=== PATIENT | female | born 1975 | race Caucasian/White ===

== ENCOUNTER 2023-08-04 13:31 | Emergency (ER) | payer OTHER ==
[~2023-08-04] VITALS: Ht 154.9 cm; Wt 77.0 kg
[2023-08-04 13:34] VITALS: O2SAT 97
[2023-08-04] MEDS ORDERED: HYDROCODONE/ACETAMINOPHEN 5/325MG TABLET PO ONE (14:30)
[2023-08-04] MEDS ORDERED: LIDOCAINE HCL/PF 1% 10 MG/ML 5ML VIAL INFIL ONE (14:30)
[2023-08-04] MEDS ORDERED: BACITRACIN ZINC OINT UDPKT TOP ONE (14:30)
[2023-08-04] MEDS ORDERED: AMOXICILLIN/POTASSIUM CLAVULANATE 875/125MG TAB PO ONE (14:30)
[2023-08-04] MEDS ORDERED: AMOX1TAB16 MT (17:25)
[2023-08-04] MEDS ORDERED: IBUP-2029 MT (17:25)
[2023-08-04] MEDS ORDERED: HYDR-4001 MT (17:25)
[2023-08-04] MEDS ORDERED: BO1 TP (17:49)
[2023-08-04 19:10] VITALS: BP 143/83; PULSE 85; RESP 17; TEMP 98
== END 2023-08-04 19:13 | disposition home or self-care (01) ==
LOC: ER 13:31
DX: S81.812A Laceration without foreign body, left lower leg, initial encounter (principal); W54.0XXA Bitten by dog, initial encounter; Y93.89 Activity, other specified; Y92.89 Other specified places as the place of occurrence of the external cause; Y99.8 Other external cause status
CPT/HCPCS: 99284; 12006; 81025; 73590; 73610; J3490